=== PATIENT | female | born 1990 | race Caucasian/White ===

== ENCOUNTER 2017-07-11 16:09 | Emergency (ER) | payer SELFPAY ==
[2017-07-11] MEDS ORDERED: ONDANSETRON HCL INJ/PF 4 MG/2 ML SDV IV ONE (17:43)
[2017-07-11] MEDS ORDERED: KETOROLAC TROMETHAMINE INJ/PF 30 MG/1 ML SDV IV ONE (17:43)
[2017-07-11] MEDS ORDERED: ACETAMINOPHEN 325 MG TABLET PO ONE (17:43)
[2017-07-11] MEDS ORDERED: NORMAL SALINE 1000 ML 1,000 ML IV ONE ×2 (17:44→20:08)
--- NOTE | 2017-07-11 17:48 | ER Document Report ---
ED Flu Like - General Chief Complaint: Fever Stated Complaint: FEVER Time Seen by Provider: 07/11/17 17:32 Mode of Arrival: Ambulatory Information source: Patient TRAVEL OUTSIDE OF THE [place] IN LAST 30 DAYS: No - HPI Patient complains to provider of: Fever Onset: Other - 3 days Quality of pain: Achy Severity: Moderate Notes: Patient arrives with complaints of fever and not feeling well for the last 3 days. She states that she has had a fever, intermittent headaches, nausea, vomiting, body aches, sore throat, cough. She denies any neck stiffness. She denies any abdominal pain. She denies any diarrhea. She denies any dysuria or hematuria. She denies any unilateral numbness, tingling, weakness. No blurred or loss vision. She denies any chest pain or difficulty breathing. She denies any known medical problems, she denies taking any medications on a daily basis she denies any immunosuppression, HIV, diabetes or . She did not get a flu shot this year. Nothing seems to be making her symptoms better or worse. She denies any other complaints at this time. - Related Data Allergies/Adverse Reactions: Shellfish * [Shellfish] Allergy (Severe, Verified 02/17/14 11:24) Anaphylaxis Coconut * [Coconut] Allergy (Verified 02/17/14 11:24) SOB, HIVES latex [Latex] Allergy (Verified 02/17/14 11:24) pineapple [Pineapple] Allergy (Verified 02/17/14 11:24) Hives Past Medical History - Social History Smoking Status: Never Smoker Chew tobacco use (# tins/day): No Frequency of alcohol use: Occasional Drug Abuse: None Family History: Reviewed & Not Pertinent Patient has suicidal ideation: No Patient has homicidal ideation: No - Past Medical History Cardiac Medical History: Denies: Hx Coronary Artery Disease, Hx Heart Attack, Hx Hypertension Pulmonary Medical History: Denies: Hx Asthma, Hx Bronchitis, Hx COPD, Hx Pneumonia Neurological Medical History: Denies: Hx Cerebrovascular Accident, Hx Seizures Renal/ Medical History: Denies: Hx Peritoneal Dialysis Musculoskeltal Medical History: Denies Hx Arthritis Past Surgical History: Reports: Hx Orthopedic Surgery - left shoulder. Denies: Hx Hysterectomy - Immunizations Hx Diphtheria, Pertussis, Tetanus Vaccination: No Review of Systems - Review of Systems -: Yes All other systems reviewed and negative Physical Exam - Vital signs Vitals: Temp Pulse BP Pulse Ox 100.8 F H 118 H 109/70 98 07/11/17 16:51 07/11/17 16:51 07/11/17 16:51 07/11/17 16:51 - Notes Notes: GENERAL: alert, cooperative, nontoxic, no distress. HEAD: normocephalic, atraumatic EYES: conjunctiva pink without discharge, no external redness or swelling. Pupils equal round react light bilaterally. EARS: no external swelling, no external redness. TMs pearly [place] with no erythema or perforation. No redness or tenderness to the mastoid. NOSE: atraumatic, no external swelling MOUTH/THROAT: mucous membranes moist and pink, posterior pharynx with erythema and ulcerations noted. Uvula is midline, no peritonsillar abscess. No trismus or drooling. NECK: soft, supple, full range of motion, no meningismus. Mild anterior cervical lymphadenopathy bilaterally. CHEST: no distress, lungs clear and equal throughout. No wheezing, rales, rhonchi. CARDIAC: regular rhythm, tachycardia, no murmur, normal capillary refill, normal pulses. No peripheral edema noted. ABDOMEN: Soft, nontender. BACK: full range of motion, no CVA tenderness. EXTREMITIES: full range of motion of all extremities. No redness, no swelling. NEURO: alert and oriented x 3, no focal deficits, full range of motion of all extremities. PYSCH: appropriate mood, affect. Patient is cooperative. SKIN: pink, warm, dry, no rash. Course - Re-evaluation Re-evalutation: 07/11/17 21:25 The patient is nontoxic appearing with stable vitals. Patient has had flulike symptoms for the last 3 days. When she initially arrived she was slightly tachycardic and had a fever. She does report that she had a lot of vomiting over the last several days, therefore labs were ordered. She was given IV fluids. Her urine shows signs of dehydration but no signs of infection. Her flu and strep were negative. Chest x-ray shows no acute abnormality. Her electrolytes were unremarkable. She is noted to have a slightly low white count which would be consistent with a viral infection. Her lactate was normal , therefore do not believe that the patient was septic. She is feeling better after IV fluids and pain medication. Patient has no risk factors for influenza , her influenza screen was negative, and she has been sick for over 48 hours, therefore Tamiflu is not indicated according to the CDC for this patient. I offered to write it for the patient if she felt like it was necessary, she declined at this time. The patient will be discharged home with a prescription for Zofran for her nausea vomiting. Instructions to take Tylenol and Motrin as needed for pain and fevers. Drink plenty of fluids. Follow-up with her doctor if not better in the next 5-7 days, sooner for worsening symptoms, difficulty breathing, persistent vomiting, abdominal pain, or any further concerns. The patient's emergency department workup and current diagnosis were explained to the patient and or family. Follow-up instructions were provided. Medications if prescribed were discussed. Instructions for when to return to the emergency department including specific worrisome symptoms were discussed with the patient and/or family. - Vital Signs Vital signs: Temp Pulse Resp BP Pulse Ox 100.8 F H 118 H 109/70 98 07/11/17 16:51 07/11/17 16:51 07/11/17 16:51 07/11/17 16:51 - Laboratory Result Diagrams: 07/11/17 19:56 07/11/17 19:56 Laboratory results interpreted by me: 07/11/17 07/11/17 07/11/17 18:15 19:56 19:56 WBC 3.6 L Plt Count 113 L Seg Neutrophils % 79.9 H Lymphocytes % 6.6 L Monocytes % 13.2 H Absolute Lymphocytes 0.2 L Carbon Dioxide 21 L Calcium 8.2 L Total Protein 6.2 L Urine Protein 30 H Urine Ketones 80 H Urine Urobilinogen 4.0 H Urine Ascorbic Acid 40 H Discharge - Discharge Clinical Impression: Viral syndrome Nausea & vomiting Qualifiers: Vomiting type: unspecified Vomiting Intractability: non-intractable Qualified Code(s): R11.2 - Nausea with vomiting, unspecified Condition: Stable Disposition: HOME, SELF-CARE Instructions: Antinausea Medication ([facility]), Intravenous (IV) Fluids ([facility]), Vomiting ([facility]), Viral Syndrome ([facility]) Additional Instructions: Take medications as prescribed. Drink plenty of fluids. Tylenol and Motrin as needed for pain. Follow-up with your doctor if not better in 5 days, sooner for worsening symptoms, difficulty breathing, severe abdominal pain, persistent vomiting, or any further concerns. Prescriptions: Ondansetron HCl [Zofran 4 mg Tablet] 1 - 2 tab PO Q4H PRN #10 tablet PRN Reason: Forms: Smoking Cessation Education Referrals: [facility] [Provider Group] - Follow up as needed
--- NOTE | 2017-07-11 17:59 | RADIOLOGY REPORT (SQ) ---
EXAM DESCRIPTION: CHEST PA/LAT COMPLETED DATE/TIME: 07/11/2017 5:52 pm REASON FOR STUDY: fever, cough COMPARISON: None. EXAM PARAMETERS: NUMBER OF VIEWS: two views TECHNIQUE: Digital Frontal and Lateral radiographic views of the chest acquired. RADIATION DOSE: NA LIMITATIONS: none FINDINGS: LUNGS AND PLEURA: No opacities, masses or pneumothorax. No pleural effusion. MEDIASTINUM AND HILAR STRUCTURES: No masses or contour abnormalities. HEART AND VASCULAR STRUCTURES: Heart normal size. No evidence for failure. BONES: No acute findings. HARDWARE: None in the chest. OTHER: No other significant finding. IMPRESSION: NO SIGNIFICANT RADIOGRAPHIC FINDING IN THE CHEST. TECHNICAL DOCUMENTATION: JOB ID: [id number] [employer]- All Rights Reserved
[2017-07-11 19:06] LABS: APPEARANCE,URINE SLIGHTLY-CLOUDY; BILIRUBIN,URINE NEGATIVE (NEGATIVE); GLUCOSE, URINE NEGATIVE (NEGATIVE); KETONES,URINE 80 mg/dL (NEGATIVE); LEUKOCYTE ESTERASE,URINE NEGATIVE (NEGATIVE); NITRITE,URINE NEGATIVE (NEGATIVE); PROTEIN,URINE 30 mg/dL (NEGATIVE); URINE SPECIFIC GRAVITY 1.034
[2017-07-11 19:11] LABS: COLOR,URINE LIGHT YELLOW
[2017-07-11 19:14] LABS: A TYPE INFLUENZA AG NEGATIVE (NEGATIVE); B INFLUENZA AG NEGATIVE (NEGATIVE)
[2017-07-11 20:20] LABS: ABSOLUTE LYMPHOCYTES (AUTO) 0.2 10^3/uL (0.5-4.7); ABSOLUTE MONOCYTES (AUTO) 0.5 10^3/uL (0.1-1.4); ABSOLUTE NEUT (AUTO) 2.9 10^3/uL (1.7-8.2); BASOPHILS % (AUTO) 0.2 % (0-2); EOSINOPHILS % (AUTO) 0.1 % (0-6); HEMATOCRIT 37.7 % (36.0-47.0); HEMOGLOBIN 12.7 g/dL (12.0-15.5); LYMPHOCYTES % (AUTO) 6.6 % (13-45); MEAN CORPUSCULAR HEMOGLOBIN 31.7 pg (27.0-33.4); MEAN CORPUSCULAR HGB CONC 33.8 g/dL (32.0-36.0); MEAN CORPUSCULAR VOLUME 94 fl (80-97); MONOCYTES % (AUTO) 13.2 % (3-13); PLATELET COUNT 113 10^3/uL (150-450); RED BLOOD COUNT 4.02 10^6/uL (3.72-5.28); RED CELL DISTRIBUTION WIDTH 12.6 % (11.5-14.0); SEGMENTED NEUTROPHILS % (AUTO) 79.9 % (42-78); TOTAL CELLS COUNTED % (AUTO) 100 %; WHITE BLOOD COUNT 3.6 10^3/uL (4.0-10.5)
[2017-07-11 20:39] LABS: ALANINE AMINOTRANSFERASE 40 U/L (9-52); ALBUMIN 3.6 g/dL (3.5-5.0); ALKALINE PHOSPHATASE 42 U/L (38-126); ANION GAP 10 (5-19); ASPARTATE AMINO TRANSFERASE 20 U/L (14-36); BILIRUBIN,DIRECT 0.2 mg/dL (0.0-0.4); BILIRUBIN,TOTAL 0.4 mg/dL (0.2-1.3); BLOOD UREA NITROGEN 10 mg/dL (7-20); CALCIUM 8.2 mg/dL (8.4-10.2); CARBON DIOXIDE 21 mmol/L (22-30); CHLORIDE 107 mmol/L (98-107); GLUCOSE 91 mg/dL (75-110); LIPASE 57.8 U/L (23-300); POTASSIUM 3.9 mmol/L (3.6-5.0); SODIUM 137.8 mmol/L (137-145); TOTAL PROTEIN 6.2 g/dL (6.3-8.2)
[2017-07-11 22:46] VITALS: BP 127/75
== END 2017-07-11 22:20 | disposition home or self-care (01) ==
LOC: ER 16:09
DX: R11.2 Nausea with vomiting, unspecified (principal); R50.9 Fever, unspecified; R51 Headache; M79.1 Myalgia; B34.9 Viral infection, unspecified; Z91.013 Allergy to seafood; Z91.018 Allergy to other foods
CPT/HCPCS: 99283; 96361; 96374; 96375; 36415; 87070; 87880; 83605; 83690; 85025; 81025; 80053; 81001; 87804; 71046; J1885; J2405; J7030

== ENCOUNTER 2019-07-06 08:23 | Emergency (ER) | payer OTHER ==
[2019-07-06 08:41] VITALS: BP 101/67
== END 2019-07-06 09:20 | disposition left against medical advice (07) ==
LOC: ER 08:23
DX: Z53.21 Procedure and treatment not carried out due to patient leaving prior to being seen by health care provider (principal)